=== PATIENT | female | born 1980 | race Caucasian/White ===

== ENCOUNTER 2019-09-11 18:06 | Emergency (ER) | payer BC, SELFPAY ==
--- NOTE | ~2019-09-11 | XR_ITS ---
EXAMINATION: XR forearm LT 2V INDICATION: Forearm pain TECHNIQUE: Two views of the right wrist are obtained. COMPARISON: None available FINDINGS: There is no fracture. Bone alignment is normal. Soft tissue swelling surrounds the wrist. IMPRESSION: 1. Soft tissue swelling without acute osseous finding. Reviewed, dictated and finalized at location A. CH ACCOUNT EXECUTIVE
[2019-09-11 18:27] VITALS: BP 139/87; PULSE 87; RESP 16; TEMP 36.9; O2SAT 100
--- NOTE | 2019-09-11 18:46 | ED.UPPEXIN ---
HPI - Extremity Injury (Upper) General Chief Complaint: Extremity Injury, Upper Stated Complaint: Left Arm pain Time Seen by Provider: 09/11/19 18:46 Source: patient and RN notes reviewed Mode of arrival: ambulatory Limitations: no limitations History of Present Illness HPI narrative: 38-year-old female presents with concern for left arm injury. Reports last week, she is not sure which day she fell while trying to catch a sheath and injured her arm. She reports immediate pain at that time, and pain that has changed in nature throughout the last week. She reports pain radiates from her left shoulder to her elbow to her lower arm. She reports decreased range of motion in her wrist and her forearm. complaint: injury to: left and arm Related Data Allergies Allergy/AdvReac Type Severity Reaction Status Date / Time prochlorperazine Allergy Mild Other Verified 09/11/19 18:41 Review of Systems Review of Systems: Narrative: CONSTITUTIONAL: Denies malaise, chills, sweats, or fever. CARDIOVASCULAR: Denies chest pain, palpitations RESPIRATORY: Denies cough or dyspnea. SKIN: Denies bruising, redness MUSCULOSKELETAL: Reports left forearm pain and decreased range of motion in left wrist NEUROLOGIC: Denies numbness, weakness. All systems reviewed & are unremarkable except as noted in HPI and below PMFSH Comments At time of signature, agree with nursing past medical, surgical, social and family history. There is no relevant family history pertinent to the presenting complaint Exam Narrative: Exam Narrative: GENERAL: Well-appearing, well-nourished, and in no acute distress. HEAD: Normocephalic, atraumatic. EYES: PERRLA, conjunctivae clear NECK: Supple. CHEST: Clear to auscultation. No respiratory distress. HEART: Regular rate and rhythm. No murmur heard. Normal peripheral pulses. EXTREMITIES: Left arm, digits of left hand have normal strength and sensation, no edema, limited range of motion with wrist flexion, elbow internal and external rotation. Defect in soft tissue of forearm noted, tender. Normal sensation with sensitivity to light touch and pain. No open wounds, no skin tenting, no devitalized tissue or atrophy, no trophic changes, no ecchymosis, alignment normal, generalized tenderness, nearby joints and structures intact. Distal pulses palpable and equal bilaterally, skin warm, dry, pink. Capillary refill less than 3 seconds. SKIN: Warm, dry, no rash. NEURO: Alert and oriented x3. PSYCH: Normal mood and affect Course Course Emergency Course: Patient is aware of diagnosis, understands and agrees to treatment plan. Anticipatory guidance given. Patient agrees to follow-up as directed and is aware of reasons to seek care at the emergency department. Portions of this record may have been created with voice recognition software Vital Signs Vital signs: Vital Signs Temperature 98.4 F 09/11/19 18: Pulse Rate 87 09/11/19 18:27 Respiratory Rate 16 09/11/19 18:27 Blood Pressure 139/87 09/11/19 18:27 Pulse Oximetry 100 09/11/19 18:27 Temperature 98.4 F 09/11/19 18:27 Pulse Rate 87 09/11/19 18:27 Respiratory Rate 16 09/11/19 18:27 Blood Pressure 139/87 09/11/19 18:27 Pulse Oximetry 100 09/11/19 18:27 Reviewed. MDM - Extremity Injury (Upper) MDM Narrative Medical decision making narrative: Patients injury and pain is consistent with musculoskeletal etiology. No signs of neurological or vascular compromise on exam. Compartments and tissues are soft without signs of compartment syndrome. Pain is felt appropriate for further evaluation on an outpatient basis. Differential Diagnosis Differential diagnosis: Likely sprain and strain of wrist, fracture of wrist, fracture of hand and other (Ulnar fracture, radial fracture, tendinitis) Imaging Data My impression: Images reviewed, interpreted by radiologist, agree, see report. Radiologist's impression: EXAMINATION: XR forearm LT 2V INDICATION: Forearm pain
== END 2019-09-11 19:15 | disposition home or self-care (01) ==
PROVIDERS: Emergency Provider Nurse Practitioner; PCP Internal Medicine
DX: S49.92XA Unspecified injury of left shoulder and upper arm, initial encounter (principal); W19.XXXA Unspecified fall, initial encounter
CPT/HCPCS: 73090; 99203; G0463

== ENCOUNTER 2021-03-26 15:58 | Outpatient (CLI) | payer BC, SELFPAY ==
[2021-03-26 20:47] LABS: Free T4 Free Thyroxine 1.43 ng/mL (0.78-2.19)
[2021-03-29 08:52] LABS: FSH 10.9 mIU/mL (***); Prolactin 8.8 ng/mL (***); Triiodothyronine T3 Free 3.2 pg/mL (2.3-4.2)
== END 2021-03-26 15:59 | disposition home or self-care (01) ==
PROVIDERS: PCP Internal Medicine; Visit Provider Obstetrics & Gynecology
DX: N91.5 Oligomenorrhea, unspecified (principal)
CPT/HCPCS: 36415; 83001; 84146; 84439; 84443; 84481

== ENCOUNTER 2021-04-22 15:31 | Outpatient (CLI) | payer BC, SELFPAY ==
--- NOTE | ~2021-04-22 | US_ITS ---
EXAMINATION: US pelvic complete w TV DATE: 04/22/2021 16:13 INDICATION: Ovarian cyst Comparison:No prior studies for comparison. TECHNIQUE: Multiple transabdominal and endovaginal sonographic images of the pelvis performed. FINDINGS: The uterus measures 9.3 x 4.2 x 5.7 cm. The endometrial complex measures 5 mm. The right ovary is surgically absent. The left ovary measures 2.1 x 1.2 x 1.2 cm with normal Doppler signal and no masses. No free fluid in the pelvis. There is no free fluid in the pelvis. There are no abnormal masses seen on either side. IMPRESSION: 1. Unremarkable pelvic ultrasound. Reviewed, dictated and finalized at location A.
== END 2021-04-22 15:32 | disposition home or self-care (01) ==
LOC: ANHIMG 15:34
PROVIDERS: PCP Internal Medicine; Visit Provider Obstetrics & Gynecology
DX: N83.209 Unspecified ovarian cyst, unspecified side (principal)
CPT/HCPCS: 76830; 76856

== ENCOUNTER 2022-08-14 12:09 | Outpatient (CLI) | payer BC, SELFPAY ==
--- NOTE | ~2022-08-14 | XR_ITS ---
XR chest 2V DATE: 08/14/2022 12:31 INDICATION: Chest pain, hypertension TECHNIQUE: PA and lateral views COMPARISON: 04/13/2008 portable AP chest FINDINGS: Normal heart size. No hilar or mediastinal enlargement. No pulmonary infiltrate or consolid ation, pleural effusion or pulmonary vascular congestion or pneumothorax is detected. IMPRESSION: No active cardiopulmonary disease Reviewed, dictated and finalized at location A. RIDER
--- NOTE | 2022-08-14 12:45 | ECG_ITS ---
Rate 74 WI 143 QRSd 112 QT 407 QTc 453 --[place]-- P 39 QRS 32 T 17 SINUS RHYTHM LOW QRS VOLTAGE IN PRECORDIAL LEADS INCOMPLETE RIGHT BUNDLE BRANCH BLOCK BASELINE WANDER- I, II, III, AVR, AVL BORDERLINE ECG NO PREVIOUS ECG AVAILABLE FOR COMPARISON Electronically Signed On 08-14-2022 13:11:01 SPLICER OPERATOR by Tyrone BUSTOS
== END 2022-08-14 12:10 | disposition home or self-care (01) ==
PROVIDERS: PCP Internal Medicine; Visit Provider Internal Medicine
DX: R07.9 Chest pain, unspecified (principal); R03.0 Elevated blood-pressure reading, without diagnosis of hypertension; N91.2 Amenorrhea, unspecified
CPT/HCPCS: 71046; 93005

== ENCOUNTER 2022-12-31 08:15 | Outpatient (RCR) | payer BC, SELFPAY ==
[2022-11-19 16:03] VITALS: BMI 45.7
[2022-11-19 16:05] VITALS: BMI 45.7
[2022-12-31 08:19] VITALS: BMI 46.2
[2022-12-31 08:20] VITALS: BMI 46.2
== END 2023-02-01 08:53 | disposition home or self-care (01) ==
LOC: ANHDMC 08:15
PROVIDERS: PCP Internal Medicine; Visit Provider Internal Medicine
DX: E11.9 Type 2 diabetes mellitus without complications (principal); Z71.89 Other specified counseling; Z71.3 Dietary counseling and surveillance
CPT/HCPCS: 97802; 97803; G0108

== ENCOUNTER → 2022-12-31 13:09 | Outpatient (CLI) | payer BC, SELFPAY ==
--- NOTE | ~2022-12-31 | MMUS_ITS ---
EXAMINATION: MM diagnostic isai BI w matt, US breast RT limited HISTORY: Right breast lump TECHNIQUE: Additional 3-D tomosynthesis images of were performed and synthetic 2-D images were genera margaux. CAD analysis was submitted and interpreted. High resolution breast ultrasound was performed. COMPARISON: 04/09/2021 diagnostic left mammogram and breast ultrasound BREAST PARENCHYMAL COMPOSITION: The breasts are almost entirely fatty. FINDINGS: MAMMOGRAPHIC FINDINGS: No suspicious mass or architectural distortion, malignant calcification, skin thickening or retractio n or significant new or developing density is detected. ULTRASOUND: 200 and 3:00 10 cm from nipple at area of clinical complaint of breast lump There are 2 circumscribed parallel hyperechoic approximately 1.3 x 4.2 x 4.6 cm and 1.2 x 2.2 x 1.9 c m lesions, with thin soft tissue capsule, without posterior shadowing or internal vascularity most co nsistent with benign lipoma. No suspicious mass or shadowing is detected. IMPRESSION: 1. Benign lipomas at 2-3:00 10 cm from nipple at area of clinical complaint of breast lump; no mammog raphic or sonographic evidence of malignancy 2. Routine annual mammographic screening is recommended BI-RADS Category 2: Benign finding(s). Reviewed, dictated and finalized at location A. IMPRESSION: 1. Benign lipomas at 2-3:00 10 cm from nipple at area of clinical complaint of breast lump; no mammographic or sonographic evidence of malignancy 2. Routine annual mammographic screening is recommended BI-RADS Category 2: Benign finding(s).
== END ==
PROVIDERS: PCP Internal Medicine; Visit Provider Obstetrics & Gynecology
DX: D17.79 Benign lipomatous neoplasm of other sites (principal)
CPT/HCPCS: 76642; 77062; 77066; G0279

== ENCOUNTER 2023-05-04 15:30 | Outpatient (RCR) | payer BC, SELFPAY ==
[2023-03-11 08:20] VITALS: BMI 46.9
--- NOTE | 2023-05-10 09:52 | PCDIET ---
05/10/23 Per conversation with ELYSIA Gonzalez, pt following up with series ELYSIA appts. MNT follow up cancelled at this time. Pt to resched prn.
== END 2023-05-31 10:16 | disposition home or self-care (01) ==
LOC: ANHDMC 15:30
PROVIDERS: PCP Internal Medicine; Visit Provider Internal Medicine
DX: E11.9 Type 2 diabetes mellitus without complications (principal); Z71.3 Dietary counseling and surveillance; Z71.89 Other specified counseling
CPT/HCPCS: 97803; G0108

== ENCOUNTER 2024-02-01 13:37 | Outpatient (CLI) | payer BC, SELFPAY ==
--- NOTE | ~2024-02-01 | MM_ITS ---
EXAMINATION: MM screening isai BI w matt HISTORY: Screening mammogram TECHNIQUE: Craniocaudal and mediolateral oblique 3-D tomosynthesis images were obtained and synthetic 2-D images were generated. CAD analysis was submitted and interpreted. COMPARISON: 12/31/2022, 04/09/2021 BREAST PARENCHYMAL COMPOSITION:Not Dense. The breasts are almost entirely fatty FINDINGS: No suspicious mass, calcification, or architectural distortion are identified in either lyudmila ast to suggest malignancy. There has been no suspicious interval change. IMPRESSION: No mammographic evidence of malignancy. Recommend routine screening mammography in one year. BI-RADS Category 1: Negative Reviewed, dictated and finalized at location .
== END 2024-02-01 13:38 | disposition home or self-care (01) ==
LOC: CHSIMG 13:41
PROVIDERS: PCP Internal Medicine; Visit Provider Obstetrics & Gynecology
DX: Z12.31 Encounter for screening mammogram for malignant neoplasm of breast (principal)
CPT/HCPCS: 77063; 77067

== ENCOUNTER 2025-02-23 07:23 | Outpatient (CLI) | payer BC, SELFPAY ==
--- NOTE | ~2025-02-23 | MM_ITS ---
EXAMINATION: MM screening [facility] BI w matt HISTORY: Screening TECHNIQUE: Craniocaudal and mediolateral oblique 3-D tomosynthesis images were obtained and synthetic 2-D images were generated. CAD analysis was submitted and interpreted. COMPARISON: Comparison to multiple prior studies sequentially, with oldest reviewed study dated 08/2020. BREAST PARENCHYMAL COMPOSITION: Not Dense: The breasts are almost entirely fatty. FINDINGS: There is no evidence of suspicious mass, calcification, or architectural distortion to sugg est malignancy in either breast. There has been no suspicious interval change. IMPRESSION: 1. No mammographic evidence of malignancy. 2. Recommend routine screening mammography in one year. BI-RADS Category 1: Negative Reviewed, dictated and finalized at location A.
--- OUTSIDE RECORDS SUMMARY | 2025-02-23 07:28 | XMS_ITS | Clinical Summary ---
Author Organization [facility] Address [address] [place] [address] Phone Care Team Providers Care Smt Technician Name Role Phone Tyler Grady MD Primary Care Provider [phone] Social History Tobacco Use Types Packs/Day Years Used Date Smoking Tobacco: Never Assessed Comments No Sex and Gender Information Value Date Recorded Sex Assigned at Not on file Legal Sex Female 10:37 PM CDT Gender Identity Not on file Sexual Orientation Not on file Plan of Treatment Health Maintenance Due Date Last Done Comments Hepatitis C Virus (HCV) Screening 1982 Human Papillomavirus (HPV) Immunization (1 - 3-dose series) 1997 Hepatitis B Immunization (1 of 3 - 19+ 3-dose series) 2001 Pap Smear 2003 Cervical Cancer Screening (CCS) 2012 HPV/Cotest 2012 SARS-COV-2 Immunization ( season) 2024 04/11/2021, 03/21/2021 Influenza Immunization (#1) 2025 05/30/2019 Respiratory Syncytial Virus (RSV) Immunization (Adult) (1 - 1-dose 75+ series) 2057 DTaP/Tdap/Td Immunization Discontinued 01/02/2020 TdaP Immunization Completed 01/02/2020 Discussion re Starting/Frequency of Mammograms Discontinued 04/09/2021 Meningococcal Immunization (ACWY) Aged Out No longer eligible based on patient's age to complete this topic Pneumococcal Immunization Combined Aged Out No longer eligible based on patient's age to complete this topic Rotavirus Immunization Aged Out No lo nger eligible based on patient's age to complete this topic Procedures Procedure Name Priority Date/Time Associated Diagnosis Comments JODY DIAG BILATERAL DIGITAL W CAD W ROSALEE Routine 04/09/2021 8:31 AM CDT Unspecified lump in the left breast, unspecified quadrant from Last 3 Months or Most Recently Relevant to Health Maintenance Results * JODY DIAG BILATERAL DIGITAL W CAD W [place] (04/09/2021 8:31 AM CDT) Anatomical Region Laterality Modality breast Bilateral Mammography 04/09/2021 8:11 AM CDT Narrative 04/09/2021 12:55 PM CDT - JODY DIAG BILATERAL DIGITAL W CAD W [place] - [facility] US BREAST LIMITED LT BILATERAL DIGITAL DIAGNOSTIC MAMMOGRAM 3D/2D WITH CAD WITH MEDIOLATERAL OBLIQUE CRANIOCAUDAL AND LEFT ULTRASOUND: 04/09/2021 The study was acquired using digital technology and interpreted from soft copy. Current study was also evaluated with Kahuna version 7.2. 2D digital mammographic views, as well as 3D digital tomosynthesis were performed in the CC and MLO projections. CLINICAL: Diagnostic study. Two palpable lumps left breast since September 2020. No personal history of cancer. No family history of breast cancer. Palpable lumps left breast. COMPARISONS: Comparison is made to exam dated: 06/21/2012 [facility]. BREAST TISSUE:There are scattered fibroglandular densities in both breasts. FINDINGS: BILATERAL DIAGNOSTIC MAMMOGRAM: No significant masses or calcifications are seen in either breast on the mammogram. No lesions are seen underlying the areas of concern in the left breast. Further evaluation was obtained with sonography. TARGETED LEFT BREAST ULTRASOUND: Several hyperechoic lesions are seen in the left breast, including lesions at the palpable areas of concern measuring 2 cm at the 9 o'clock position of the left breast, 12 cm from the nipple and 1.1 cm at the 3 o'clock position of the left breast, 12 cm from the nipple consistent with lipomas. No suspicious lesions are seen. IMPRESSION: OVERALL STUDY BIRADS: 2 BENIGN There is no mammographic or sonographic evidence of malignancy. The areas of concern correspond to lipomas. A bilateral screening mammogram is recommended at age 40. The patient has been or will be contacted. Electronically signed by: Chantel Alcaraz M.D. ll/:04/09/2021 09:30:26 Alley Worker(s): Aldair Castro)(Dilcia), [facility]; Yessy Pizarro, [facility] letter sent: Normal Exam Reading location: [facility] OVERALL STUDY BIRADS: 2 Benign Procedure Note Chantel Alcaraz MD - 04/09/2021 - JODY DIAG BILATERAL DIGITAL W CAD W [place] - JODY US BREAST LIMITED LT BILATERAL DIGITAL DIAGNOSTIC MAMMOGRAM 3D/2D WITH CAD WITH MEDIOLATERAL OBLIQUE CRANIOCAUDAL AND LEFT ULTRASOUND: 04/09/2021 The study was acquired using digital technology and interpreted from soft copy. Current study was also evaluated with Kahuna version 7.2. 2D digital mammographic views, as well as 3D digital tomosynthesis were performed in the CC and MLO projections. CLINICAL: Diagnostic study. Two palpable lumps left breast since September 2020. No personal history of cancer. No family history of breast cancer. Palpable lumps left breast. COMPARISONS: Comparison is made to exam dated: 06/21/2012 [facility]. BREAST TISSUE:There are scattered fibroglandular densities in both breasts. FINDINGS: BILATERAL DIAGNOSTIC MAMMOGRAM: No significant masses or calcifications are seen in either breast on the mammogram. No lesions are seen underlying the areas of concern in the left breast. Further evaluation was obtained with sonography. TARGETED LEFT BREAST ULTRASOUND: Several hyperechoic lesions are seen in the left breast, including lesions at the palpable areas of concern measuring 2 cm at the 9 o'clock position of the left breast, 12 cm from the nipple and 1.1 cm at the 3 o'clock position of the left breast, 12 cm from the nipple consistent with lipomas. No suspicious lesions are seen. IMPRESSION: OVERALL STUDY BIRADS: 2 BENIGN There is no mammographic or sonographic evidence of malignancy. The areas of concern correspond to lipomas. A bilateral screening mammogram is recommended at age 40. The patient has been or will be contacted. Electronically signed by: Chantel Alcaraz M.D. ll/:04/09/2021 09:30:26 Alley Worker(s): Aldair Castro)(M), [facility]; Yessy Juarez, [facility] letter sent: Normal Exam Reading location: [facility] OVERALL STUDY BIRADS: 2 Benign us Lorene Vega MD IMG MAMMO ORDERABLES Final Resu lt from Last 3 Months or Most Recently Relevant to Health Maintenance Insurance Member Subscriber Plan / Payer (Ef fective 2014-Present) Name:Mellissa Reagan Relation to Subscriber:Spouse Name:MELLISSA REAGAN Paddy Date of :1982 (Home) Address: [address] [place] [address] Payer ID:[id number] Type:PPO Address: [id number] [place], [place] [id number] [address] Care Teams Smt Technician Relationship Specialty Start Date End Date Tyler Grady MD [address] [place] [address] PCP - General Internal Medicine 04/09/21
--- OUTSIDE RECORDS SUMMARY | 2025-02-23 07:28 | XMS_ITS | Clinical Summary ---
Author Organization [facility] Address [address] [place] [address] Care Team Providers Care Cad Application Support Specialist Name Role Phone Tyler Grady MD Primary Care Provider [phone] Allergies Active Allergy Reactions Criticality Noted Date Comments Prochlorperazine Unknown 07/12/2020 States that her jaw locked up Medications No known medications Social History Tobacco Use Types Packs/Day Years Used Date Smoking Tobacco: Never Smokeless Tobacco: Never Comments No Sex and Gender Information Value Date Recorded Sex Assigned at Not on file Legal Sex Female 7:38 PM CDT Gender Identity Not on file Sexual Orientation Not on file Last Filed Vital Signs Vital Sign Reading Time Taken Comments Blood Pressure 165/95 07/12/2020 10:57 AM DRYWALL HANGER FRAMER Pulse 104 07/12/2020 10:57 AM DRYWALL HANGER FRAMER Temperature 36.6 C (97.8 F) 07/12/2020 10:57 AM DRYWALL HANGER FRAMER Respiratory Rate 18 07/12/2020 10:57 AM DRYWALL HANGER FRAMER Oxygen Saturation 97% 07/12/2020 10:57 AM DRYWALL HANGER FRAMER Inhaled Oxygen Concentration - - Weight 129.8 kg (286 lb 2 oz) 07/12/2020 10:57 A M DRYWALL HANGER FRAMER Height 165.1 cm (5' 5) 07/12/2020 10:57 AM DRYWALL HANGER FRAMER Body Mass Index 47.61 07/12/2020 10:57 AM DRYWALL HANGER FRAMER Plan of Treatment Health Maintenance Due Date Last Done Comments Cervical Cancer Screening Pa p Smear (Age 30 to 64) Every 3 Years 1982 Annual Physical 1985 Hepatitis C 2000 DTaP, Tdap and Td Vaccines ( 1 - Tdap) 2001 Hepatitis B Vaccines (1 of 3 - 19+ 3-dose series) 2001 HPV Vaccines (1 - 3-dose SCD M series) 2009 Cervical Cancer Screening Pa p with HPV Testing (Age 30 to 64) Every 5 Years 2012 Cervical Cancer Screening with HPV 2012 Mammogram Screening 2022 COVID-19 Vaccine (2023-2 5 season) 2024 Meningococcal B Vaccine Aged Out No l onger eligible based on patient's age to complete this topic Meningococcal Vaccine Aged Out No torie radha eligible based on patient's age to complete this topic Pneumococcal Vaccine: Pediat rics (0 to 5 Years) and At-Risk Patients (6 to 49 Years) Aged Out No longer eligible b ased on patient's age to complete this topic RSV Immunizations Under 20 Months Aged Out No longer eligible based on patient's age to complete this topic Insurance Care Teams Cad Application Support Specialist Relationship Specialty Start Date End Date Tyler Grady MD [address] [place] [address] PCP - General INTERNAL MEDICINE 07/12/20
== END 2025-02-23 07:24 | disposition home or self-care (01) ==
LOC: CHSIMG 07:26
PROVIDERS: PCP Internal Medicine; Visit Provider Nurse Practitioner Obstetrics & Gynecology
DX: Z12.31 Encounter for screening mammogram for malignant neoplasm of breast (principal)
CPT/HCPCS: 77063; 77067